=== PATIENT | male | born 1985 | race Caucasian/White ===

== ENCOUNTER → 2023-09-04 | Outpatient (CLI) | payer MEDICARE, MEDICAID | END | disposition home or self-care (01) | LOC: LAB 07:33 | PROVIDERS: ATTEND Internal Medicine | DX: E34.9 Endocrine disorder, unspecified (principal); Z79.899 Other long term (current) drug therapy ==

== ENCOUNTER 2024-01-19 21:56 | Emergency (ER) | payer MEDICARE, MEDICAID ==
[~2024-01-19] VITALS: Ht 180.3 cm; Wt 174.6 kg
[2024-01-19] MEDS ORDERED: ASPIRIN ADULT L81 M1 PO (22:37)
[2024-01-19] MEDS ORDERED: LAMICTAL25 MG PO (22:37)
[2024-01-19] MEDS ORDERED: CETIRIZINE10 MG PO (22:37)
[2024-01-19] MEDS ORDERED: LIPITOR40 MG PO (22:37)
[2024-01-19] MEDS ORDERED: COZAAR25 M1 PO (22:38)
[2024-01-19] MEDS ORDERED: TOPCARE OMEPRAZ20 MG PO (22:38)
[2024-01-19] MEDS ORDERED: ABILIFY MYCITE5 M2 PO (22:38)
[2024-01-19] MEDS ORDERED: JARDIANCE25 MG PO (22:38)
[2024-01-19] MEDS ORDERED: METFORMIN HYDR500 MG PO (22:38)
[2024-01-20] MEDS ORDERED: Ketorolac Tromethamine 30 MG/ML VIAL IM ONE (01:05)
[2024-01-20] MEDS ORDERED: AZITHROMYCIN 250 MG TAB PO ONE (01:05)
[2024-01-20] MEDS ORDERED: NAPROSYN500 MG PO (01:07)
[2024-01-20] MEDS ORDERED: AVPAK AZITHROM250 M1 PO (01:07)
== END 2024-01-20 01:47 | disposition home or self-care (01) ==
LOC: ED 21:56
DX: R09.1 Pleurisy (principal); R07.89 Other chest pain; F41.9 Anxiety disorder, unspecified; F32.A Depression, unspecified; F17.290 Nicotine dependence, other tobacco product, uncomplicated